=== PATIENT | male | born 1965 | race Caucasian/White ===

== ENCOUNTER 2016-11-27 19:43 | Emergency (ER) | payer MEDICAID ==
[2016-11-27 20:02] LABS: APPEARANCE CLOUDY (CLEAR); BILIRUBIN NEGATIVE (NEGATIVE); COLOR YELLOW (YELLOW); GLUCOSE NEGATIVE (NEGATIVE); KETONE NEGATIVE (NEGATIVE); LEUKOCYTE ESTERASE 2+ (NEGATIVE); NITRITE POSITIVE (NEGATIVE); PH 5.5 (5.0-6.0); PROTEIN 1+ mg/dL (NEGATIVE); SPECIFIC GRAVITY 1.025 (1.005-1.020)
[2016-11-27 20:11] LABS: AMORPHOUS SEDIMENT <1+ /lpf (NONE SEEN); BACTERIA MANY /hpf (NONE SEEN); GRANULAR CAST 0-5 /lpf (NONE SEEN); HYALINE CAST OCC /lpf (NONE SEEN); RED CELLS - URINE >50 /hpf (0-5); WHITE CELLS - URINE >50 /hpf (0-5)
== END 2016-11-27 20:48 | disposition home or self-care (01) ==
LOC: D.ER 19:43
PROVIDERS: Emergency Medicine
DX: R31.9 Hematuria, unspecified (principal); R30.0 Dysuria; N39.0 Urinary tract infection, site not specified; F17.200 Nicotine dependence, unspecified, uncomplicated

== ENCOUNTER 2016-11-30 13:22 | Emergency (ER) | payer MEDICAID | END 2016-11-30 14:46 | disposition home or self-care (01) | LOC: D.ER 13:22 | DX: G89.29 Other chronic pain (principal); F17.200 Nicotine dependence, unspecified, uncomplicated ==

== ENCOUNTER 2016-12-10 17:20 | Emergency (ER) | payer MEDICAID ==
[2016-12-10 19:16] LABS: BASOPHILS 0.7 % (0-2); EOSINOPHILS 2.1 % (0-7); HEMATOCRIT 43.2 % (42.0-54.0); HEMOGLOBIN 14.4 g/dL (13.5-17.5); IMMATURE GRANULOCYTES 0.3 % (0-5); LYMPHOCYTES 22.7 % (15-50); MCH 32.5 pg (26.0-34.0); MCHC 33.3 g/dL (31.0-37.0); MCV 97.5 fL (80.0-100.0); MEAN PLATELET VOLUME 9.4 fL (7.4-10.4); MONOCYTES 10.1 % (2-11); NEUTROPHILS 64.1 % (40-80); PLATELET COUNT 383 10x3/uL (130-400); RBC 4.43 10x6/uL (4.20-6.10); RDW 14.3 % (11.5-14.5); WBC 11.5 10x3/uL (4.8-10.8)
[2016-12-10 20:02] LABS: APPEARANCE CLOUDY (CLEAR); BILIRUBIN NEGATIVE (NEGATIVE); COLOR DK YELLOW (YELLOW); GLUCOSE NEGATIVE (NEGATIVE); KETONE NEGATIVE (NEGATIVE); LEUKOCYTE ESTERASE 2+ (NEGATIVE); NITRITE POSITIVE (NEGATIVE); PROTEIN 2+ mg/dL (NEGATIVE); UROBILINOGEN NORMAL (NORMAL)
[2016-12-10 20:03] LABS: WHITE CELLS - URINE 25-50 /hpf (0-5)
[2016-12-10 20:05] LABS: BACTERIA FEW /hpf (NONE SEEN); EPITHELIAL CELLS NSEEN /hpf (0-5)
== END 2016-12-10 21:43 | disposition home or self-care (01) ==
LOC: D.ER 17:20
PROVIDERS: Emergency Medicine
DX: N39.0 Urinary tract infection, site not specified (principal)

== ENCOUNTER 2016-12-14 09:19 | Emergency (ER) | payer MEDICAID | END 2016-12-14 10:17 | disposition home or self-care (01) | LOC: D.ER 09:19 | DX: M54.5 Low back pain (principal) ==

== ENCOUNTER 2017-05-06 11:53 | Emergency (ER) | payer MEDICAID | END 2017-05-06 13:03 | disposition home or self-care (01) | LOC: D.ER 11:53 | DX: M51.36 Other intervertebral disc degeneration, lumbar region (principal); F17.200 Nicotine dependence, unspecified, uncomplicated ==

== ENCOUNTER 2017-05-13 20:34 | Emergency (ER) | payer MEDICAID | END 2017-05-13 21:30 | disposition home or self-care (01) | LOC: D.ER 20:34 | DX: M54.5 Low back pain (principal); M54.12 Radiculopathy, cervical region; F17.200 Nicotine dependence, unspecified, uncomplicated ==

== ENCOUNTER 2017-05-17 23:51 | Emergency (ER) | payer MEDICAID | END 2017-05-18 01:31 | disposition home or self-care (01) | LOC: D.ER 23:51 | DX: K21.9 Gastro-esophageal reflux disease without esophagitis (principal); M54.2 Cervicalgia; M54.9 Dorsalgia, unspecified ==

== ENCOUNTER 2017-07-19 02:58 | Emergency (ER) | payer MEDICAID | END 2017-07-19 03:44 | disposition home or self-care (01) | LOC: D.ER 02:58 | DX: M54.5 Low back pain (principal); K21.9 Gastro-esophageal reflux disease without esophagitis; F17.200 Nicotine dependence, unspecified, uncomplicated ==

== ENCOUNTER 2017-08-02 14:07 | Emergency (ER) | payer MEDICAID | END 2017-08-02 17:25 | disposition home or self-care (01) | LOC: D.ER 14:07 | DX: M54.6 Pain in thoracic spine (principal); M19.90 Unspecified osteoarthritis, unspecified site; K21.9 Gastro-esophageal reflux disease without esophagitis; F17.200 Nicotine dependence, unspecified, uncomplicated ==

== ENCOUNTER 2017-08-16 12:12 | Emergency (ER) | payer MEDICAID | END 2017-08-16 13:35 | disposition home or self-care (01) | LOC: D.ER 12:12 | DX: M54.2 Cervicalgia (principal); M54.5 Low back pain; M25.562 Pain in left knee; M25.561 Pain in right knee; F17.200 Nicotine dependence, unspecified, uncomplicated ==

== ENCOUNTER → 2017-09-11 14:18 | Outpatient (CLI) | payer MEDICAID | END | disposition home or self-care (01) | LOC: D.RAD 14:18 | DX: M54.2 Cervicalgia (principal); M54.6 Pain in thoracic spine; M54.5 Low back pain ==

== ENCOUNTER 2017-10-28 23:53 | Emergency (ER) | payer MEDICAID ==
[~2017-10-28] VITALS: Ht 182.9 cm; Wt 61.4 kg
[2017-10-28 23:56] VITALS: Ht 182.9 cm; Wt 61.4 kg
[2017-10-29] MEDS ORDERED: ROBAXIN-750750 MG PO (00:20)
[2017-10-29 00:23] VITALS: BP 126/80
== END 2017-10-29 00:24 | disposition home or self-care (01) ==
LOC: D.ER 23:53
DX: M54.5 Low back pain (principal); F17.200 Nicotine dependence, unspecified, uncomplicated

== ENCOUNTER 2017-11-05 03:41 | Emergency (ER) | payer MEDICAID ==
[~2017-11-05] VITALS: Ht 182.9 cm; Wt 61.7 kg
[~2017-11-05 03:41] MED LIST: ROBAXIN-750750 MG PO
[2017-11-05 03:48] VITALS: Ht 182.9 cm; Wt 61.7 kg
[2017-11-05 04:20] VITALS: BP 126/77
== END 2017-11-05 04:20 | disposition home or self-care (01) ==
LOC: D.ER 03:41
DX: M54.5 Low back pain (principal); F17.200 Nicotine dependence, unspecified, uncomplicated

== ENCOUNTER 2017-11-13 15:00 | Emergency (ER) | payer MEDICAID ==
[~2017-11-13] VITALS: Ht 182.9 cm; Wt 59.1 kg
[2017-11-13 15:20] VITALS: BP 118/70; Ht 182.9 cm; Wt 59.1 kg
[2017-11-13] MEDS ORDERED: CLEOCIN HCL300 MG PO (18:09)
== END 2017-11-13 17:18 | disposition home or self-care (01) ==
LOC: D.ER 15:00
DX: S61.211A Laceration without foreign body of left index finger without damage to nail, initial encounter (principal); Y04.2XXA Assault by strike against or bumped into by another person, initial encounter; Y93.89 Activity, other specified; Y92.89 Other specified places as the place of occurrence of the external cause

== ENCOUNTER 2017-11-18 18:55 | Emergency (ER) | payer MEDICAID ==
[2017-11-13 15:20] VITALS: BMI 17.6
[~2017-11-18 18:55] MED LIST changes: +CLEOCIN HCL300 MG PO
== END 2017-11-18 19:25 | disposition left against medical advice (07) ==
LOC: D.ER 18:55
DX: S80.812A Abrasion, left lower leg, initial encounter (principal); W55.03XA Scratched by cat, initial encounter; Y93.89 Activity, other specified; Y92.019 Unspecified place in single-family (private) house as the place of occurrence of the external cause

== ENCOUNTER 2017-11-18 19:31 | Emergency (ER) | payer MEDICAID ==
[~2017-11-18] VITALS: Ht 182.9 cm; Wt 59.0 kg
[2017-11-18 19:35] VITALS: Ht 182.9 cm; Wt 59.0 kg
[2017-11-18 21:33] VITALS: BP 111/69
== END 2017-11-18 21:35 | disposition home or self-care (01) ==
LOC: D.ER 19:31
DX: S80.812A Abrasion, left lower leg, initial encounter (principal); W55.03XA Scratched by cat, initial encounter; Y93.89 Activity, other specified; Y92.019 Unspecified place in single-family (private) house as the place of occurrence of the external cause; F17.200 Nicotine dependence, unspecified, uncomplicated

== ENCOUNTER 2017-12-18 05:39 | Emergency (ER) | payer MEDICAID ==
[~2017-12-18] VITALS: Ht 182.9 cm; Wt 59.0 kg
[2017-12-18 05:54] VITALS: Ht 182.9 cm; Wt 59.0 kg
[2017-12-18] MEDS ORDERED: HYDROCODONE-APA1 TAB PO (06:52)
[2017-12-18 07:03] VITALS: BP 111/56
== END 2017-12-18 07:07 | disposition home or self-care (01) ==
LOC: D.ER 05:39
DX: M54.5 Low back pain (principal); F17.200 Nicotine dependence, unspecified, uncomplicated

== ENCOUNTER 2017-12-27 17:30 | Emergency (ER) | payer MEDICAID ==
[~2017-12-27] VITALS: Ht 182.9 cm; Wt 59.1 kg
[~2017-12-27 17:30] MED LIST changes: +HYDROCODONE-APA1 TAB PO
[2017-12-27 17:42] VITALS: BP 95/61; Ht 182.9 cm; Wt 59.1 kg
[2017-12-27 19:07] LABS: BASOPHILS 0.9 % (0-2); EOSINOPHILS 2.4 % (0-7); HEMOGLOBIN 13.4 g/dL (13.5-17.5); IMMATURE GRANULOCYTES 0.2 % (0-5); LYMPHOCYTES 31.6 % (15-50); MCH 33.3 pg (26.0-34.0); MCHC 34.4 g/dL (31.0-37.0); MCV 96.8 fL (80.0-100.0); MEAN PLATELET VOLUME 9.6 fL (7.4-10.4); NEUTROPHILS 54.9 % (40-80); PLATELET COUNT 309 10x3/uL (130-400); RBC 4.03 10x6/uL (4.20-6.10); RDW 13.6 % (11.5-14.5); WBC 6.6 10x3/uL (4.8-10.8)
[2017-12-27 19:14] LABS: APPEARANCE CLEAR (CLEAR); BILIRUBIN NEGATIVE (NEGATIVE); COLOR DK YELLOW (YELLOW); GLUCOSE NEGATIVE (NEGATIVE); KETONE NEGATIVE (NEGATIVE); NITRITE NEGATIVE (NEGATIVE); PROTEIN NEGATIVE (NEGATIVE); SPECIFIC GRAVITY 1.025 (1.005-1.020); UROBILINOGEN NORMAL (NORMAL)
[2017-12-27 19:23] LABS: ALBUMIN 3.3 g/dL (3.4-5.0); ALKALINE PHOSPHATASE 65 U/L (46-116); ALT (SGPT) 29 U/L (10-68); BILIRUBIN - TOTAL 0.19 mg/dL (0.2-1.3); CALC OSMOLALITY 279 mosm/kg (275-300); CALCIUM 8.2 mg/dL (8.5-10.1); CARBON DIOXIDE 31.6 mmol/L (21.0-32.0); CHLORIDE - SERUM 106 mmol/L (98-107); CREATININE - SERUM 0.9 mg/dL (0.6-1.3); POTASSIUM - SERUM 3.7 mmol/L (3.5-5.1); PROTEIN - SERUM 6.7 g/dL (6.4-8.2); SODIUM 142 mmol/L (136-145); UREA NITROGEN 11 mg/dL (7-18); eGFR NON AFRICAN AMERICAN > 90 mL/min (90-120)
[2017-12-27 19:32] LABS: GLUCOSE 70 mg/dL (74-106)
[2017-12-27 19:44] LABS: THYROID STIMULATING HORMONE 1.84 uIU/mL (0.36-3.74)
[2017-12-27] MEDS ORDERED: TORADOL10 MG PO (19:57)
== END 2017-12-27 20:19 | disposition home or self-care (01) ==
LOC: D.ER 17:30
PROVIDERS: Family Medicine
DX: M54.5 Low back pain (principal); F17.200 Nicotine dependence, unspecified, uncomplicated

== ENCOUNTER 2017-12-31 15:30 | Emergency (ER) | payer MEDICAID ==
[~2017-12-31] VITALS: Ht 182.9 cm; Wt 72.7 kg
[~2017-12-31 15:30] MED LIST changes: +TORADOL10 MG PO
[2017-12-31 16:05] VITALS: Ht 182.9 cm; Wt 72.7 kg
[2017-12-31] MEDS ORDERED: NAPROSYN500 MG (18:16)
[2017-12-31] MEDS ORDERED: EC-NAPROSYN500 MG PO (18:17)
[2017-12-31 18:32] VITALS: BP 124/92
== END 2017-12-31 18:33 | disposition home or self-care (01) ==
LOC: D.ER 15:30
DX: M54.5 Low back pain (principal)